=== PATIENT | male | born 1945 | race Caucasian/White ===

== ENCOUNTER 2018-05-04 05:13 | Day surgery (SDC) | payer MEDICARE, BC ==
[2018-04-27 09:33] LABS: HEMATOCRIT 47.3 % (37.9-51.0); HEMOGLOBIN 16.5 g/dL (13.5-17.0); MEAN CORPUSCULAR HEMOGLOBIN 29.7 pg (27.0-33.4); MEAN CORPUSCULAR HGB CONC 34.9 g/dL (32.0-36.0); MEAN CORPUSCULAR VOLUME 85 fl (80-97); PLATELET COUNT 214 10^3/uL (150-450); RED BLOOD COUNT 5.56 10^6/uL (4.35-5.55); RED CELL DISTRIBUTION WIDTH 12.7 % (11.5-14.0); WHITE BLOOD COUNT 7.7 10^3/uL (4.0-10.5)
[2018-05-04] MEDS ORDERED: METRONIDAZOLE 500 MG/NS RTU 500 MG/100 ML RTUPB IV ONE (05:22)
[2018-05-04] MEDS ORDERED: LIDOCAINE 2% JELLY 5 ML TUBE ONE (07:10)
[2018-05-04] MEDS ORDERED: LIDOCAINE 1%/EPINEPHRINE INJ 20 ML VIAL ONE (07:10)
[2018-05-04] MEDS ORDERED: FENTANYL CITRATE INJ/PF 100 MCG/2 ML AMPUL ONE (07:12)
[2018-05-04] MEDS ORDERED: DEXMEDETOMIDINE INJ 80 MCG/20 ML VIAL IV ONE (07:12)
[2018-05-04] MEDS ORDERED: KETAMINE HCL INJ 500 MG/10 ML VIAL ONE (07:12)
[2018-05-04] MEDS ORDERED: MIDAZOLAM 2 MG/2 ML INJ ONE (07:12)
[2018-05-04] MEDS ORDERED: PROPOFOL INJ 200 MG/20 ML VIAL IV ONE (07:12)
[2018-05-04] MEDS ORDERED: MORPHINE SULFATE 10 MG/ML INJ IV PRN (07:56)
[2018-05-04] MEDS ORDERED: MEPERIDINE HCL/PF INJ 25 MG/1 ML DISP.SYRIN IV PRN (07:56)
[2018-05-04] MEDS ORDERED: DIPHENHYDRAMINE HCL 50 MG/ML VIAL IV PRN (07:56)
[2018-05-04] MEDS ORDERED: PROMETHAZINE HCL INJ 25 MG/1 ML VIAL IV PRN ×2 (07:56)
[2018-05-04] MEDS ORDERED: FENTANYL CITRATE INJ/PF 100 MCG/2 ML AMPUL IV PRN ×3 (07:56)
[2018-05-04] MEDS ORDERED: OXYCODONE-ACETAMINOPHEN 5-325 MG TABLET PO PRN (08:38)
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
--- NOTE | 2018-05-04 08:38 | Discharge Summary ---
Discharge Summary (SDC) - Discharge Final Diagnosis: hemorrhoids Date of Surgery: 05/04/18 Discharge Date: 05/04/18 Condition: Good Treatment or Instructions: [facility] [address], [place] [address] Hemorrhoid or Anal Surgery Discharge Instructions 1. General Information: a. DO NOT DRIVE a car or operate dangerous machinery for 4-7 days or while taking narcotic prescription pain pills. b. DO NOT consume alcohol, tranquilizers, sleeping medications or any non- prescribed medications for 24 hours unless approved by your doctor or as long as taking narcotic prescription medications. c. DO NOT make important decisions or sign any important papers for the next 24 hours. d. Have a responsible person with you tonight. 2. Activity Restrictions: 2 weeks a. Avoid heavy lifting or straining until you feel more comfortable. b. It is fine to go for walks, up and down steps, ride in a car. 3. Treatment: a. Tomorrow morning begin warm water sitz baths (soaks) with plain water. You may do 3-4 times per day or after bowel movements to help relieve spasm and p ain. Place a dry gauze or panty liner over the sight to catch drainage and blood to help keep your clothing dry. b. You may use Tucks or other medicated wipes to help clean the area as needed. c. If packing used it will pass spontaneously with bowel function. External dressings and medicated gauze should be removed before sitz baths. 4. Medications: a. You may take the narcotic prescription tablets for pain one tablet every 6 hours. (Tramadol). b. Stop the narcotic when able since you cannot take it and drive and they cause constipation. You may switch to plain Tylenol, Advil or Aleve as you transition from the narcotic. Many adults find good pain relief with Advil 600- 800 mg three times a day with meals for short courses. This can cause indigestion, ulcers, and kidney problems with long-term use. c. Resume all normal medications unless a change is specified by your doctors. d. Stool softeners are encouraged to help you for 2-4 weeks to maintain a soft stool and avoid more painful bowel movements due to pain medication. Colace is often used. e. A numbing cream may be prescribed, this can be applied after sitz baths around the perianal area before the sight is covered with a gauze pad. f. Constipation is very common after anal surgery and you may take [id number] medications to help stimulate the bowel such as Milk of Magnesia, Senokot tablets, prune juice and drink plenty of water. 5. Diet: a. Begin with clear liquids and if you do well you may then advance to normal foods low in fat and protein at first. Smaller portion size may be landin the first night. b. Acidic (orange juice, tomato), foods high in ruffage (grapes, celery, asparagus) and spicy foods should be avoided for comfort the first 2-3 weeks since they can cause more burning sensation with bowel movements. 6..Follow Up Care: a. Please call the office to schedule a follow up appointment with your doctor for 2 weeks. In the event of any postoperative problems or questions or you may call the office during business hours or the On-Call physician evenings and weekends at [facility]. [facility] I understand the instructions for my postoperative care as described above and a copy has been given to me. Patient/Significant Other Witness Date Prescriptions: Tramadol HCl [Ultram 50 mg Tablet] 50 mg PO Q6 PRN #20 tablet PRN Reason: Referrals: [facility], [facility] [Primary Care Provider] - Discharge Diet: As Tolerated Discharge Activity: No Lifting Over 10 Pounds, Walk Frequently Report the Following to Your Physician Immediately: Nausea, Vomiting, Increase in Pain, Fever over 101 Degrees, Unusual Bleeding, Redness, Swelling, Warmth, Drainage-Foul Smelling
[2018-05-04] MEDS ORDERED: OXYCODONE-ACETAMINOPHEN 5-325 MG TABLET ONE (09:22)
[2018-05-04 11:03] VITALS: BP 127/71
== END 2018-05-04 10:25 | disposition home or self-care (01) ==
LOC: OROUT 05:13
PROVIDERS: ATTEND Surgery
DX: K64.5 Perianal venous thrombosis (principal); K62.89 Other specified diseases of anus and rectum; I10 Essential (primary) hypertension; N40.0 Benign prostatic hyperplasia without lower urinary tract symptoms; Z86.010 Personal history of colon polyps; Z79.899 Other long term (current) drug therapy; Z79.01 Long term (current) use of anticoagulants; Z88.0 Allergy status to penicillin; Z88.1 Allergy status to other antibiotic agents
CPT/HCPCS: 36415; 85027; 88305 ×2; 46260; J2250; J3010; J3490 ×3; A9270; J2704; 902